=== PATIENT | male | born 1980 | race Caucasian/White ===

== ENCOUNTER → 2020-08-21 | Outpatient (CLI) | payer BC, OTHER ==
[~2020-08-21] MED LIST: LIQUID POLIBAR PLUS 105% w/v 1900ML BTL As Ordered ONE
--- NOTE | 2020-08-21 18:29 | REP ---
INDICATION: TORTUOUS COLON. COMPARISON: None TECHNIQUE: The procedure was performed by CONSTANZA Quesada, under the direct supervision of Dr. Barrett. The images were reviewed with Dr. Barrett prior to dictation. Liquid barium and air were instilled into the colon and retrograde flow of the barium air mixture. FINDINGS: The professor of communication film shows no organomegaly, or pathological masses. The intestinal gas pattern is unremarkable. The colon is normal in position and contour. Postradiation bulla is unremarkable throughout. There is free flow of contrast to the cecum. 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 The colonic mucosal pattern is normal in course and caliber, with redundancy of the sigmoid colon limiting the study. There is no annular constricting lesion identified. There are no polypoid masses identified. . IMPRESSION: 1. Incompetent ileocecal valve with opacified ileum, as well as redundancy of the sigmoid colon limited this exam. 2. No strictures or masses were identified. 1.4 minutes of fluoroscopy time was utilized for this procedure. Some fluoroscopic images are performed with last image hold technology. These images require no additional radiation <Electronically signed by Rufina Mallory > 08/21/20 1531 <Electronically signed by Jame Barrett > 08/21/20 [id number]
== END ==
LOC: M RAD 07:28
PROVIDERS: ATTEND Internal Medicine Gastroenterology
DX: K63.5 Polyp of colon (principal); K63.89 Other specified diseases of intestine; Z83.71 Family history of colonic polyps; Z53.9 Procedure and treatment not carried out, unspecified reason

== ENCOUNTER → 2021-08-22 | Outpatient (CLI) | payer BC, OTHER ==
[2021-08-22 14:14] LABS: SEMEN APPEARANCE OPAQUE (OPAQUE); SEMEN VISCOSITY LIQUID (LIQUID); WBC CONCENTRATION <=1 M/ml (<=1 M/ml)
== END ==
LOC: M LAB 13:26
PROVIDERS: ATTEND Preventive Medicine Undersea and Hyperbaric Medicine
DX: Z30.2 Encounter for sterilization (principal)